=== PATIENT | female | born 1980 | race Caucasian/White ===

== ENCOUNTER 2019-02-05 22:44 | Emergency (ER) | payer OTHER ==
[~2019-02-05] VITALS: Ht 160 cm; Wt 70.4 kg
[~2019-02-05 22:44] MED LIST: CIPR500T4 PO; ONDA8TAB14 PO
[2019-02-05 22:50] VITALS: Ht 160 cm; Wt 70.4 kg
[2019-02-05] MEDS ORDERED: FAMOTIDINE 20 MG TAB PO STA (23:17)
[2019-02-05] MEDS ORDERED: LIDOCAINE/MYLANTA 40 ML BTL PO STA (23:17)
[2019-02-05] MEDS ORDERED: KETOROLAC 30 MG INJ IM ONE (23:30)
[2019-02-05] MEDS ORDERED: CIPROFLOXACIN 500 MG TAB PO ONE (23:30)
--- NOTE | 2019-02-06 00:14 | ERD ---
ER Documentation Chief Complaint Chief Complaint recent travel to [facility] c/o n/v/d with HASKINS x 4 days HPI This is a 38-year-old female with a history of recent travel chills laboratory p resents with nausea vomiting and diarrhea for the last 4 days. She describes to 4 episodes of watery nonbloody stools, today she has been having dry retching, she has been having diffuse abdominal cramping, no focal abdominal pain, she denies a fever. She has not had any vaginal discharge or any urinary symptoms. ROS All systems reviewed and are negative except as per history of present illness. Allergies Allergies: Coded Allergies: Sulfa (Sulfonamide Antibiotics) (Verified Allergy, Unknown, 02/05/19) PMhx/Soc Medical and Surgical Hx: pt denies Medical Hx, pt denies Surgical Hx History of Surgery: No Anesthesia Reaction: No Hx Neurological Disorder: No Hx Respiratory Disorders: No Hx Cardiac Disorders: No Hx Psychiatric Problems: No Hx Miscellaneous Medical Probl: No Hx Alcohol Use: Yes (OCCASIONAL DRINKER.) Hx Substance Use: No Hx Tobacco Use: No Smoking Status: Never smoker Physical Exam Vitals Vital Signs Date Temp Pulse Resp B/P (MAP) Pulse Ox O2 O2 Flow FiO2 Time Delivery Rate 02/05/19 97.0 93 16 140/98 98 22:50 (112) Physical Exam Const: Well-developed well-nourished, nontoxic Head: Atraumatic Eyes: Normal conjunctiva ENT: Normal external ears, nose and mouth. Neck: Resp: Normal respiratory effort Cardio: Abd: Soft, nontender, no rebound or guarding, no McBurney's point tenderness Skin: Back: Ext: Neur: Awake and alert Psych: Normal mood and affect Results 24 hrs Laboratory Tests Test 02/05/19 23:46 02/05/19 23:59 POC Beta HCG, Qualitative NEGATIVE Bedside Urine pH (LAB) 7.5 Bedside Urine Protein (LAB) Negative Bedside Urine Glucose (UA) Negative Bedside Urine Ketones (LAB) Negative Bedside Urine Blood Trace-lysed Bedside Urine Nitrite (LAB) Negative Bedside Urine Leukocyte Esterase (L Trace Current Medications Medications Dose Sig/Mary Start Time Status Last (Trade) Ordered Route PRN Stop Time Admin Dose Reason Admin Famotidine 20 mg ONCE STAT 02/05/19 DC 02/05/19 (Pepcid) PO 23:17 23:51 02/05/19 23:20 40 ml ONCE STAT 02/05/19 DC 02/05/19 Miscellaneous PO 23:17 23:51 Medication 02/05/19 23:20 (Gi Cocktail (2)) Ketorolac 30 mg ONCE ONCE 02/05/19 DC 02/05/19 Tromethamine IM 23:30 23:54 (Toradol) 02/05/19 23:34 500 mg ONCE ONCE 02/05/19 DC 02/05/19 Ciprofloxacin PO 23:30 23:51 (Cipro) 02/05/19 23:34 Procedures/MDM 38-year-old female presents for evaluation of diarrhea for the last 4 days. On exam patient had no peritoneal signs, at this point I do not suspect surgical abdomen, she has no signs or symptoms concerning for UTI, given recent travel to [place], shared decision-making was made to treat for traveler's diarrhea with a short course of 2 days of Cipro, also provided Zofran for nausea control at discharge she was in no distress. Departure Diagnosis: Primary Impression: Nausea and vomiting Vomiting type: unspecified Vomiting Intractability: unspecified Qualified Codes: R11.2 - Nausea with vomiting, unspecified Condition: Stable DEANNA SCHUMACHER MD Feb 06, 2019 00:14
[2019-02-06 01:01] VITALS: BP 132/80; PULSE 89; RESP 17
== END 2019-02-06 01:01 | disposition home or self-care (01) ==
LOC: FTE 22:44
DX: R11.2 Nausea with vomiting, unspecified (principal)
CPT/HCPCS: 81003; 81025; 96372; 99284; J1885